=== PATIENT | female | born 1955 | race Caucasian/White ===

== ENCOUNTER 2016-07-01 00:53 | Inpatient (IN) | payer MEDICAID, OTHER ==
[~2016-07-01] VITALS: Ht 154.9 cm; Wt 59.8 kg
[2016-07-01] VITALS (15 sets, daily range): BP systolic 121–171; BP diastolic 58–100; PULSE 72–151; RESP 16–19; TEMP 98.9; O2SAT 92–98
[2016-07-01] MEDS ORDERED: DILTIAZEM HCL 25 MG/5 ML VIAL ONE (01:50)
[2016-07-01] MEDS ORDERED: SODIUM CHLORIDE 0.9% FLUSH 5 ML FLUSH IVF PRN (02:00)
[2016-07-01] MEDS ORDERED: DILTIAZEM HCL 25 MG/5 ML VIAL IV ONE (02:00)
[2016-07-01] MEDS ORDERED: DILTIAZEM HCL 25 MG/5 ML VIAL IV PUSH ONE (02:00)
--- NOTE | 2016-07-01 02:05 | PD ---
HPI Chief Complaint: Psychiatric Symptoms Time Seen by Provider: 01:55 Travel History International Travel<30 days: No Contact w/Intl Traveler<30days: No Traveled to known affect area: No History of Present Illness HPI The patient is 60 year old female who presents to the [facility] emergency department with a history of reportedly being under increased stress recently with increased depression since having to move in with her ex- in a house to avoid foreclosure. The patient reports that she began to drink alcohol again. She reports that she's drinking a half a pint of vodka per day. Because she was concerned about interactions between alcohol and her medications, she has not been taking her medication on a regular basis. She last took her warfarin 2 weeks ago. She last took her other medications yesterday. The patient reports that she has a history of coronary artery disease, atrial fibrillation, hypertension, bipolar disorder. The patient was brought in as a Ruiz act. The patient was noted to be in A. fib with RVR with heart rate in the 140s to 150s on arrival. The patient denies having any acute complaints. The patient was brought in as a Ruiz act. After reviewing the patient's Ruiz act, the patient had reported suicidal ideations to a deputy. The patient was initially taken to the [facility] under the Ruiz act, however they referred her to [facility] as her medical history was beyond the scope of their care. The patient denies any recent fevers, cough, congestion, neck pain, chest pain, shortness of breath, abdominal pain, vomiting, diarrhea, urinary symptoms, or neurologic symptoms. [facility] Past Medical History Narrative Medical The patient's past medical history is significant for insulin-dependent diabetes mellitus, history of atrial fibrillation with RVR, history of a heart valve replacement, history of hypertension, history of bipolar disorder, history of congestive heart failure, history of alcohol abuse. Past Surgical History Narrative Surgical The patient's past surgical history is significant for bilateral tubal ligation , coronary artery bypass grafting and valve replacement 2. Social History Alcohol Use: Yes (one half pint of vodka per day.) Tobacco Use: No Substance Use: No Allergies-Medications (Allergen,Severity, Reaction): Coded Allergies: Spironolactone (Verified Allergy, Mild, 05/03/03) Review of Systems Except as stated in HPI: all other systems reviewed are Neg General / Constitutional: No: Fever Eyes: No: Visual changes HENT: No: Headaches Cardiovascular: No: Chest Pain or Discomfort Respiratory: No: Shortness of Breath Gastrointestinal: No: Abdominal Pain Genitourinary: No: Dysuria Musculoskeletal: No: Pain Skin: No Rash Neurologic: No: Weakness Psychiatric: Positive: Anxiety, Depression, Suicidal Ideations, Mood Disorder, Substance Abuse, No: Homicidal Ideation Endocrine: No: Polydipsia Hematologic/Lymphatic: No: Easy Bruising Physical Exam Narrative General: The patient is a well-developed well-nourished female, with pressured speech, and no acute distress. She is pleasant and cooperative. Head and Neck exam: Head is normocephalic atraumatic. Eyes: Pupils are equal round and reactive to light. Nose: Midline septum with pink mucous membranes Mouth: Dentition unremarkable. Moist mucus membranes. Posterior oropharynx is not erythematous. No tonsillar hypertrophy. Uvula midline. Airway patent. Neck: No palpable lymphadenopathy. No nuchal rigidity. No thyromegaly. Cardiovascular: Irregularly irregular with tachycardia and a rate in the 140s without murmurs, gallops, or rubs. Lungs: Clear to auscultation bilaterally. No wheezes, rhonchi, or rales. Abdomen: Soft, without tenderness to palpation in all 4 quadrants of the abdomen. No guarding, rebound, or rigidity. Normal bowel sounds are audible. Extremities: No clubbing, cyanosis, or edema. 2+ pulses in all 4 extremities. No calf tenderness on palpation. Back: No spinous process tenderness to palpation. No costovertebral angle tenderness to palpation. Neurologic Exam: Cranial nerves 2-12 were intact on exam. Strength is 5/5 in all 4 extremities. No sensory deficits noted. Skin Exam: She has bruising on her extremities in various stages of healing. The patient has circular patches of erythema with dry skin overlying them consistent with psoriasis. Intact skin that is warm and dry. Data Data Last Documented VS Vital Signs Date Time Temp Pulse Resp B/P Pulse Ox O2 Delivery O2 Flow Rate FiO2 07/01/16 04:07 95 21 07/01/16 02:30 128 16 167/77 Room Air 07/01/16 01:50 98.9 Orders Complete Blood Count With Diff (07/01/16 01:38) Comprehensive Metabolic Panel (07/01/16 01:38) Drug Screen, Random Urine (07/01/16 01:38) Alcohol (Ethanol) (07/01/16 01:38) Salicylates (Aspirin) (07/01/16 01:38) Tylenol (Acetaminophen) (07/01/16 01:38) Psych Screen (07/01/16 01:38) Electrocardiogram (07/01/16 01:38) Troponin I (07/01/16 01:38) B-Type Natriuretic Peptide (07/01/16 01:38) Prothrombin Time / Inr (Pt) (07/01/16 01:38) Act Partial Throm Time (Ptt) (07/01/16 01:38) Urinalysis - C+S If Indicated (07/01/16 01:38) Magnesium (Mg) (07/01/16 01:38) Thyroid Stimulating Hormone (07/01/16 01:38) Chest, Single Ap (07/01/16 01:38) Iv Access Insert/Monitor (07/01/16 01:38) Ecg Monitoring (07/01/16 01:38) Oximetry (07/01/16 01:38) Diltiazem Inj (Cardizem Inj) (07/01/16 02:00) Diltiazem Inj (Cardizem Inj) (07/01/16 02:00) Diltiazem Inj (Cardizem Inj) (07/01/16 02:00) Sodium Chloride 0.9% Flush (Ns Flush) (07/01/16 02:00) Diltiazem Inj (Cardizem Inj) (07/01/16 01:50) Sodium Chlorid 0.9% 500 Ml Inj (Ns 500 M (07/01/16 04:00) Lorazepam Inj (Ativan Inj) (07/01/16 04:00) Admit To Inpatient (07/01/16 ) Vital Signs (Adult) Q4H (07/01/16 03:55) Activity Oob With Assistance (07/01/16 03:55) ^ Maintenance Custodian / Telemetry .CONTINUOUS (07/01/16 03:55) Diet Heart Healthy (07/01/16 Breakfast) Sodium Chloride 0.9% Flush (Ns Flush) (07/01/16 04:00) Sodium Chloride 0.9% Flush (Ns Flush) (07/01/16 09:00) Creatine Kinase (Cpk) (07/01/16 08:00) Creatine Kinase (Cpk) (07/01/16 14:00) Troponin I (07/01/16 08:00) Troponin I (07/01/16 14:00) Electrocardiogram (07/01/16 08:00) Electrocardiogram (07/01/16 14:00) Case Management Consult (07/01/16 03:55) Naloxone Inj (Narcan Inj) (07/01/16 04:00) Alcohol Withdrawal Asmt-Ciwa Q4HX18 (07/01/16 03:55) Flumazenil Inj (Romazicon Inj) (07/01/16 04:00) Lorazepam (Ativan) (07/01/16 04:00) Lorazepam Inj (Ativan Inj) (07/01/16 04:00) Lorazepam (Ativan) (07/01/16 04:00) Lorazepam Inj (Ativan Inj) (07/01/16 04:00) Lorazepam Inj (Ativan Inj) (07/01/16 04:00) Lorazepam Inj (Ativan Inj) (07/01/16 04:00) Inpatient Certification (07/01/16 ) Albuterol-Ipratropium Neb (Duoneb Neb) (07/01/16 04:00) Albuterol-Ipratropium Neb (Duoneb Neb) (07/01/16 04:00) Admit Order (Ed Use Only) (07/01/16 04:10) Labs Laboratory Tests Test 07/01/16 02:00 White Blood Count 11.7 TH/MM3 Red Blood Count 4.36 MIL/MM3 Hemoglobin 13.9 GM/DL Hematocrit 39.9 % Mean Corpuscular Volume 91.7 FL Mean Corpuscular Hemoglobin 31.9 PG Mean Corpuscular Hemoglobin 34.8 % Concent Red Cell Distribution Width 13.1 % Platelet Count 167 TH/MM3 Mean Platelet Volume 8.3 FL Neutrophils (%) (Auto) 74.7 % Lymphocytes (%) (Auto) 18.1 % Monocytes (%) (Auto) 6.4 % Eosinophils (%) (Auto) 0.2 % Basophils (%) (Auto) 0.6 % Neutrophils # (Auto) 8.8 TH/MM3 Lymphocytes # (Auto) 2.1 TH/MM3 Monocytes # (Auto) 0.8 TH/MM3 Eosinophils # (Auto) 0.0 TH/MM3 Basophils # (Auto) 0.1 TH/MM3 CBC Comment DIFF FINAL Differential Comment Prothrombin Time 12.5 SEC Prothromb Time International 1.1 RATIO Ratio Activated Partial 23.8 SEC Thromboplast Time Sodium Level 134 MEQ/L Potassium Level 4.4 MEQ/L Chloride Level 100 MEQ/L Carbon Dioxide Level 20.4 MEQ/L Anion Gap 14 MEQ/L Blood Urea Nitrogen 6 MG/DL Creatinine 0.69 MG/DL Estimat Glomerular Filtration 86 ML/MIN Rate Random Glucose 153 MG/DL Calcium Level 9.0 MG/DL Magnesium Level 1.1 MG/DL Total Bilirubin 0.7 MG/DL Aspartate Amino Transf 50 U/L (AST/SGOT) Alanine Aminotransferase 32 U/L (ALT/SGPT) Alkaline Phosphatase 166 U/L Troponin I 0.02 NG/ML B-Type Natriuretic Peptide 103 PG/ML Total Protein 8.9 GM/DL Albumin 4.9 GM/DL Thyroid Stimulating Hormone 0.434 uIU/ML 3rd Gen Salicylates Level LESS THAN 1.7 MG/DL Acetaminophen Level LESS THAN 2.0 MCG/ML Ethyl Alcohol Level 180 MG/DL [facility] Medical Decision Making Medical Screen Exam Complete: Yes Emergency Medical Condition: Yes Medical Record Reviewed: Yes Interpretation(s) Last Impressions Chest X-Ray 07/01/16 0138 Signed Impressions: Service Date/Time: Friday, July 01, 2016 02:00 - CONCLUSION: No acute disease. Heart valve replacement. Toni Willett MD Differential Diagnosis Atrial fibrillation with RVR, versus SVT, versus atrial flutter, versus electrolyte abnormality, versus dehydration Narrative Course During the course of the patients emergency department visit, the patients history, examination, and differential diagnosis were reviewed with the patient. The patient had IV access obtained and blood work sent for analysis. The patient was placed on a case monitor with oximetry and blood pressure monitoring. An EKG was done on arrival. The patient's EKG shows A. fib with RVR with a heart rate in the 140s, no other acute ST segment changes. The patient was provided normal saline IV fluids. The patient was given Cardizem 14 mg IV times one per weight base protocol as a bolus, then Cardizem 5 mg IV per hour for rate control. The patient was given Ativan 0.5 mg IV times one for acute anxiety. The patients laboratory studies were reviewed and remarkable for a white count of 11.7, hemoglobin 13.9, platelets 167 with neutrophils 74.7, CMP is remarkable for sodium of 134, CO2 20.4, BUNs 6, glucose 153, magnesium 1.1 which will be supplemented IV, AST 50, alkaline phosphatase 166, troponin I 0.02 , BNP 103, TSH 0.434, acetaminophen less than 2, salicylate less than 1.7, alcohol 180. Radiology studies were reviewed and remarkable for a chest x-ray that is unremarkable. The patients results were discussed with the patient, including the plan of care. I explained that further testing and/ or monitoring is indicated based on the patients history, examination, and/ or laboratory findings. Therefore, I recommended admission for additional evaluation. The patient expressed understanding and was agreeable with this plan. The patient was admitted to the hospital in stable condition and sent to a bed under the care of the [facility] service. The patients results were discussed with the patient, including the plan of care. I explained that further testing and/ or monitoring is indicated based on the patients history, examination, and/ or laboratory findings. Therefore, I recommended admission for additional evaluation. The patient expressed understanding and was agreeable with this plan. The patient was admitted to the hospital in stable condition and sent to a bed under the care of the [facility] service. Physician Communication Physician Communication The patient's case was discussed with Dr. George who did agree to admit the patient for further evaluation and treatment at this time. Diagnosis Primary Impression: Atrial fibrillation with RVR Additional Impressions: Suicidal ideations Bipolar disorder Qualified Code: F31.9 - Bipolar affective disorder, remission status unspecified Alcohol intoxication Qualified Code: F10.129 - Alcohol intoxication, with unspecified complication Hypomagnesemia Admitting Information Admitting Physician Requests: Odalys Rueda MD Jul 01, 2016 02:05
[2016-07-01 02:13] LABS: AUTOMATED NEUTROPHIL # 8.8 TH/MM3 (1.8-7.7); BASOPHIL # 0.1 TH/MM3 (0-0.2); BASOPHIL % 0.6 % (0.0-2.0); EOSINOPHIL % 0.2 % (0.0-4.0); HEMATOCRIT 39.9 % (35.0-46.0); HEMO FLAGS DIFF FINAL; LYMPH % 18.1 % (9.0-44.0); LYMPHOCYTE # 2.1 TH/MM3 (1.0-4.8); MEAN CELL VOLUME 91.7 FL (80.0-100.0); MEAN CORPUSCULAR HEMOGLOBIN 31.9 PG (27.0-34.0); MEAN CORPUSCULAR HGB CONC 34.8 % (32.0-36.0); MONO % 6.4 % (0.0-8.0); NEUT % 74.7 % (16.0-70.0); PLATELET COUNT 167 TH/MM3 (150-450); RED BLOOD COUNT 4.36 MIL/MM3 (4.00-5.30); RED CELL DISTRIBUTION WIDTH 13.1 % (11.6-17.2); WHITE BLOOD COUNT 11.7 TH/MM3 (4.0-11.0)
[2016-07-01 02:23] LABS: APTT (PATIENT) 23.8 SEC (24.3-30.1); INTERNATIONAL NORMALIZED RATIO 1.1 RATIO; PROTHROMBIN TIME - PATIENT 12.5 SEC (9.8-11.6)
[2016-07-01] MEDS: DILTIAZEM INJ 125 MG in SODIUM CHLORIDE 0.9% INJ 100 ML IV SCH ×2 (02:34→12:20)
[2016-07-01 02:35] LABS: ALT (GPT) 32 U/L (10-53); ANION GAP 14 MEQ/L (5-15); AST (GOT) 50 U/L (15-37); BICARBONATE 20.4 MEQ/L (21.0-32.0); BLOOD UREA NITROGEN 6 MG/DL (7-18); CHLORIDE 100 MEQ/L (98-107); GLOMERULAR FILTRATION RATE 86 ML/MIN (>89); MAGNESIUM 1.1 MG/DL (1.5-2.5); POTASSIUM 4.4 MEQ/L (3.5-5.1); SODIUM (NA) 134 MEQ/L (136-145)
[2016-07-01 02:44] LABS: ACETAMINOPHEN LESS THAN 2.0 MCG/ML (10.0-30.0); ALKALINE PHOSPHATASE 166 U/L (45-117); TOTAL BILIRUBIN ADULT 0.7 MG/DL (0.2-1.0)
--- NOTE | 2016-07-01 03:02 | RADRPT ---
EXAM DATE/TIME: 07/01/2016 02:00 [place] COMPARISON: No previous studies available for comparison. INDICATIONS : Short of breath. MEDICAL HISTORY : None. SURGICAL HISTORY : CABG. ENCOUNTER: Initial ACUITY: 1 day PAIN SCORE: 0/10 LOCATION: Bilateral chest FINDINGS: A single view of the chest demonstrates the lungs to be symmetrically aerated without evidence of mas s, infiltrate or effusion. Status post median sternotomy and heart are replacement. The cardiomedias tinal contours are unremarkable. Osseous structures are intact. CONCLUSION: No acute disease. Heart valve replacement. Toni Willett MD on July 01, 2016 at 3:00 Board Certified Radiologist. This report was verified electronically.
[2016-07-01] MEDS ORDERED: FLUMAZENIL 1 MG/10 ML VIAL IV PUSH PRN (04:00)
[2016-07-01] MEDS ORDERED: RESP: ALBUTEROL 2.5 MG/IPRATROPIUM 0.5 MG NEB (PRN) NEB (04:00)
[2016-07-01] MEDS ORDERED: NALOXONE HCL 0.4 MG/ML AMP IV PRN (04:00)
[2016-07-01] MEDS ORDERED: LORazepam 2 MG/ML VIAL IV PUSH PRN ×3 (04:00)
[2016-07-01] MEDS ORDERED: SODIUM CHLORID 0.9% 500 ML INJ 500 ML IV ONE (04:00)
[2016-07-01] MEDS ORDERED: LORazepam 2 MG/ML VIAL IV PUSH ONE (04:00)
[2016-07-01] MEDS ORDERED: SODIUM CHLORIDE 0.9% FLUSH 5 ML FLUSH FLUSH PRN ×2 (04:00→13:00)
[2016-07-01] MEDS: RESP: ALBUTEROL 2.5 MG/IPRATROPIUM 0.5 MG NEB (SCH) NEB ×4 (04:05→19:40)
[2016-07-01] MEDS: LORazepam 2 MG/ML VIAL IV PUSH PRN ×2 (08:22→12:39)
[2016-07-01] MEDS: SODIUM CHLORIDE 0.9% FLUSH 5 ML FLUSH FLUSH SCH ×3 (09:00→21:40)
[2016-07-01 10:08] LABS: CKMB 6.2 NG/ML (0.5-3.6)
[2016-07-01] MEDS ORDERED: DILTIAZEM HCL 25 MG/5 ML VIAL IV PUSH PRN (11:15)
[2016-07-01] MEDS ORDERED: GLUCAGON 1 MG/ML VIAL OTHER PRN (13:00)
[2016-07-01] MEDS ORDERED: DEXTROSE 50% IN WATER 50 ML VIAL(D50) IV PUSH PRN (13:00)
[2016-07-01] MEDS ORDERED: HEPARIN SODIUM - SQ 10,000 UNITS/ML VIAL SQ SCH (13:00)
[2016-07-01] MEDS ORDERED: DIGOXIN 0.5 MG/2 ML VIAL IV PUSH ONE (13:00)
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
[2016-07-01] MEDS ORDERED: CLOB0.0571 TOPICAL (14:17)
[2016-07-01] MEDS ORDERED: TRAZ100T4 PO (14:17)
[2016-07-01] MEDS ORDERED: HYDR50TA94 PO (14:17)
[2016-07-01] MEDS ORDERED: METF1000 PO (14:17)
[2016-07-01] MEDS ORDERED: LAMO100 PO (14:17)
[2016-07-01] MEDS ORDERED: OMEP20TA PO (14:17)
[2016-07-01] MEDS ORDERED: ZOLO25TA PO (14:17)
[2016-07-01] MEDS ORDERED: LISI2.5T3 PO (14:17)
[2016-07-01] MEDS ORDERED: INSU100V2 SQ (14:17)
[2016-07-01] MEDS ORDERED: METO-426 PO (14:20)
[2016-07-01] MEDS ORDERED: FURO1TAB62 PO (14:20)
[2016-07-01 14:25] LABS: CREATINE KINASE 273 U/L (26-192)
[2016-07-01 14:37] LABS: CKMB 4.3 NG/ML (0.5-3.6)
[2016-07-01] MEDS: MAGNESIUM SULFATE 1 GM PREMIX 100 ML IV SCH ×2 (14:50→15:10)
[2016-07-01] MEDS: SODIUM CHLOR 0.9% 1000 ML INJ 1,000 ML IV SCH (14:50)
[2016-07-01] MEDS: ASPIRIN 325 MG TAB PO SCH (14:51)
[2016-07-01] MEDS: FOLIC ACID 1 MG TAB PO SCH (14:51)
[2016-07-01] MEDS: PANTOPRAZOLE SOD 40 MG DELAYED RELEASE TAB PO SCH (14:52)
[2016-07-01] MEDS: THIAMINE HCL 100 MG TAB PO SCH (14:52)
[2016-07-01] MEDS ORDERED: METOPROLOL TARTRATE 25 MG TAB PO ONE (15:15)
[2016-07-01] MEDS ORDERED: METOPROLOL TARTRATE 5 MG/5 ML VIAL IV PUSH PRN (15:15)
[2016-07-01] MEDS: INSULIN ASPART SUPPLEMENTAL SCALE SQ SCH ×2 (16:56→21:00)
--- NOTE | 2016-07-01 17:09 | EKG ---
Date Performed: 07/01/2016 Time Performed: 01:44:34 PTAGE: 60 years EKG: Supraventricular tachycardia RIGHT BUNDLE BRANCH BLOCK LEFT POSTERIOR FASCICULAR BLOCK ABNO RMAL ECG NO PREVIOUS TRACING DOCTOR: Feng Pappas Interpretating Date/Time 07/01/2016 17:08:38
--- NOTE | 2016-07-01 17:12 | EKG ---
Date Performed: 07/01/2016 Time Performed: 09:04:20 PTAGE: 60 years EKG: Supraventricular tachycardia Right bundle branch block. Left posterior fasicular block. Due to wandering baseline artifact accuate interpretation is Limited. ABNORMAL ECG PREVIOUS TRACING : 07/01/2016 01.44 DOCTOR: Feng Pappas Interpretating Date/Time 07/01/2016 17:11:50
[2016-07-01 17:13] LABS: ALKALINE PHOSPHATASE 156 U/L (45-117); ALT (GPT) 28 U/L (10-53); ANION GAP 15 MEQ/L (5-15); AST (GOT) 36 U/L (15-37); BLOOD UREA NITROGEN 10 MG/DL (7-18); CHLORIDE 98 MEQ/L (98-107); FREE T4 1.08 NG/DL (0.76-1.46); GLOMERULAR FILTRATION RATE 64 ML/MIN (>89); POTASSIUM 4.3 MEQ/L (3.5-5.1); SODIUM (NA) 133 MEQ/L (136-145); TOTAL BILIRUBIN ADULT 1.3 MG/DL (0.2-1.0)
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
[2016-07-01] MEDS ORDERED: PILL SPLITTER OTHER PRN (19:45)
[2016-07-01] MEDS: SERTRALINE HCL 50 MG TAB PO SCH (21:40)
[2016-07-01] MEDS: lamoTRIgine 100 MG TAB PO SCH (21:40)
[2016-07-01] MEDS: traZODone HCL 100 MG TAB PO SCH (21:40)
[2016-07-01] MEDS: BETAMETHASONE DIPROPIONATE 0.05% CREAM 15 GM TOPICAL SCH (21:40)
[2016-07-01] MEDS: METOPROLOL TARTRATE 25 MG TAB PO SCH (21:40)
[2016-07-02] VITALS (11 sets, daily range): BP systolic 108–134; BP diastolic 47–78; PULSE 60–83; RESP 14–20; TEMP 98.2–98.4; O2SAT 94–99
[2016-07-02] MEDS: SODIUM CHLOR 0.9% 1000 ML INJ 1,000 ML IV SCH ×3 (00:14→18:50)
[2016-07-02] MEDS: RESP: ALBUTEROL 2.5 MG/IPRATROPIUM 0.5 MG NEB (SCH) NEB ×4 (03:47→21:28)
[2016-07-02 05:20] LABS: HEMATOCRIT 33.3 % (35.0-46.0); MEAN CELL VOLUME 91.7 FL (80.0-100.0); MEAN CORPUSCULAR HEMOGLOBIN 30.6 PG (27.0-34.0); MEAN CORPUSCULAR HGB CONC 33.3 % (32.0-36.0); PLATELET COUNT 89 TH/MM3 (150-450); RED BLOOD COUNT 3.63 MIL/MM3 (4.00-5.30); RED CELL DISTRIBUTION WIDTH 12.9 % (11.6-17.2); WHITE BLOOD COUNT 4.9 TH/MM3 (4.0-11.0)
[2016-07-02] MEDS: METOPROLOL TARTRATE 25 MG TAB PO SCH ×3 (06:27→20:58)
[2016-07-02] MEDS: INSULIN ASPART SUPPLEMENTAL SCALE SQ SCH ×4 (06:28→20:59)
[2016-07-02 07:06] LABS: REVIEW FLAG AUTO DIFF
[2016-07-02] MEDS: SODIUM CHLORIDE 0.9% FLUSH 5 ML FLUSH FLUSH SCH ×4 (09:00→21:00)
[2016-07-02] MEDS: SERTRALINE HCL 50 MG TAB PO SCH ×2 (10:20→20:58)
[2016-07-02] MEDS: lamoTRIgine 100 MG TAB PO SCH (10:20)
[2016-07-02] MEDS: FOLIC ACID 1 MG TAB PO SCH (10:21)
[2016-07-02] MEDS: THIAMINE HCL 100 MG TAB PO SCH (10:21)
[2016-07-02] MEDS: ASPIRIN 325 MG TAB PO SCH (10:21)
[2016-07-02] MEDS: PANTOPRAZOLE SOD 40 MG DELAYED RELEASE TAB PO SCH (10:22)
[2016-07-02] MEDS: BETAMETHASONE DIPROPIONATE 0.05% CREAM 15 GM TOPICAL SCH ×2 (10:22→21:08)
[2016-07-02] MEDS: LORazepam 1 MG TAB PO PRN ×2 (12:11→20:44)
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
[2016-07-02] MEDS ORDERED: ASPIRIN EC 81 MG TABEC PO ONE (15:45)
[2016-07-02 17:06] LABS: HEMOGLOBIN A1a 0.9 %; HEMOGLOBIN Ao 83.2 %; HEMOGLOBIN LA1C 3.1 %; HEMOGLOBIN P3 4.1 %
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
[2016-07-02] MEDS: DILTIAZEM INJ 125 MG in SODIUM CHLORIDE 0.9% INJ 100 ML IV SCH (20:47)
[2016-07-02] MEDS: INSULIN DETEMIR 100 UNITS/ML VIAL SQ SCH (20:58)
[2016-07-02] MEDS: traZODone HCL 100 MG TAB PO SCH (21:06)
[2016-07-02] MEDS: lamoTRIgine 25 MG TAB PO SCH (21:06)
--- NOTE | 2016-07-02 22:45 | EKG ---
Date Performed: 07/01/2016 Time Performed: 14:17:15 PTAGE: 60 years EKG: ATRIAL FLUTTER/TACHYCARDIA WITH RAPID VENTRICULAR RESPONSE INDETERMINATE AXIS RIGHT BUNDLE BRANCH BLOCK ANTEROSEPTAL MYOCARDIAL INFARCTION ST DEPRESSION, CONSIDER SUBENDOCARDIAL INJURY ABNORMA L ECG PREVIOUS TRACING : 07/01/2016 09.04 Compared to prior tracing no significant change DOCTOR: Terrance Moore Interpretating Date/Time 07/02/2016 22:41:32
[2016-07-03] VITALS (29 sets, daily range): BP systolic 121–175; BP diastolic 71–110; PULSE 52–115; RESP 16–20; TEMP 97.4–98.7; O2SAT 92–99
[2016-07-03] MEDS: LORazepam 1 MG TAB PO PRN (03:47)
[2016-07-03] MEDS: RESP: ALBUTEROL 2.5 MG/IPRATROPIUM 0.5 MG NEB (SCH) NEB ×4 (04:17→21:53)
[2016-07-03 05:19] LABS: AUTOMATED NEUTROPHIL # 1.6 TH/MM3 (1.8-7.7); BASOPHIL % 0.7 % (0.0-2.0); EOSINOPHIL # 0.2 TH/MM3 (0-0.4); EOSINOPHIL % 4.5 % (0.0-4.0); HEMATOCRIT 30.8 % (35.0-46.0); LYMPH % 38.7 % (9.0-44.0); LYMPHOCYTE # 1.3 TH/MM3 (1.0-4.8); MEAN CELL VOLUME 93.8 FL (80.0-100.0); MEAN CORPUSCULAR HEMOGLOBIN 31.6 PG (27.0-34.0); MEAN CORPUSCULAR HGB CONC 33.7 % (32.0-36.0); MONO % 9.8 % (0.0-8.0); NEUT % 46.3 % (16.0-70.0); PLATELET COUNT 74 TH/MM3 (150-450); RED BLOOD COUNT 3.28 MIL/MM3 (4.00-5.30); WHITE BLOOD COUNT 3.4 TH/MM3 (4.0-11.0)
[2016-07-03 05:23] LABS: HEMO FLAGS AUTO DIFF
[2016-07-03 05:44] LABS: ALKALINE PHOSPHATASE 106 U/L (45-117); ALT (GPT) 22 U/L (10-53); ANION GAP 7 MEQ/L (5-15); AST (GOT) 25 U/L (15-37); BICARBONATE 22.3 MEQ/L (21.0-32.0); BLOOD UREA NITROGEN 7 MG/DL (7-18); CHLORIDE 115 MEQ/L (98-107); GLOMERULAR FILTRATION RATE 98 ML/MIN (>89); MAGNESIUM 1.4 MG/DL (1.5-2.5); POTASSIUM 3.5 MEQ/L (3.5-5.1); SODIUM (NA) 144 MEQ/L (136-145); TOTAL BILIRUBIN ADULT 0.6 MG/DL (0.2-1.0)
[2016-07-03] MEDS: METOPROLOL TARTRATE 25 MG TAB PO SCH ×3 (06:23→21:43)
[2016-07-03] MEDS: INSULIN ASPART SUPPLEMENTAL SCALE SQ SCH ×4 (06:25→21:00)
[2016-07-03] MEDS: SODIUM CHLOR 0.9% 1000 ML INJ 1,000 ML IV SCH (06:25)
[2016-07-03 07:57] LABS: PLATELET ESTIMATE SMEAR LOW (NORMAL); PLATELET MORPHOLOGY NORMAL (NORMAL); SCAN/DIFF AUTO DIFF CONFIRMED
--- NOTE | 2016-07-03 08:27 | EC ---
Study Study Date:07/02/2016 STUDY CONCLUSIONS SUMMARY - Left ventricle: The cavity size was normal. Systolic function was normal. The estimated ejection fraction was in the range of 55% to 60%. - Aortic valve: A bioprosthesis was present and functioning normally. There was no pannus formation. Trace regurgitation. - Mitral valve: A bioprosthesis was present and functioning normally. Valve area by pressure half-time: 2.24cm^2. - Left atrium: The atrium was moderately dilated. - Right ventricle: The cavity size was mildly dilated. - Right atrium: The atrium was moderately dilated. - Tricuspid valve: There appears to be a ring repair of the tricuspid valve, but no history noted per the patient. Mild-moderate regurgitation. - Pulmonary arteries: PA peak pressure: 57mm Hg (S). If LV function is below 40, please consider prescribing an ACEI or ARB or document rationale for non-use. PROCEDURE DATA STUDY STATUS: Elective. Procedure: Transthoracic echocardiography. Image quality was good. Scanning was performed from the parasternal, apical, and subcostal acoustic windows. Study completion: The patient tolerated the procedure well. Transthoracic echocardiography. M-mode, complete 2D, complete spectral Doppler, and color Doppler. Patient status: Inpatient. CARDIAC ANATOMY LEFT VENTRICLE: The cavity size was normal. There was no hypertrophy. Systolic function was normal. The estimated ejection fraction was in the range of 55% to 60%. AORTIC VALVE: A bioprosthesis was present and functioning normally. There was no pannus formation. Doppler: There was no stenosis. Trace regurgitation. MITRAL VALVE: A bioprosthesis was present and functioning normally. Doppler: There was no evidence for stenosis. Trace regurgitation. Valve area by pressure half-time: 2.24cm^2. Mean gradient: 5mm Hg (D). Peak gradient: 22mm Hg (D). LEFT ATRIUM: The atrium was moderately dilated. RIGHT VENTRICLE: The cavity size was mildly dilated. Systolic function was normal. PULMONIC VALVE: Not well visualized. Doppler: There was no evidence for stenosis. No significant regurgitation. TRICUSPID VALVE: There appears to be a ring repair of the tricuspid valve, but no history noted per the patient. Doppler: There was no evidence for stenosis. Mild-moderate regurgitation. RIGHT ATRIUM: The atrium was moderately dilated. PERICARDIUM: There was no pericardial effusion. BASIC MEASUREMENTS ADULT Normal Left ventricle LV internal dimension, ED, chordal level, *42.9 mm 43-52 PLAX LV posterior wall thickness, ED 7.63 mm IVS/LVPW ratio, ED 1.17 <1.3 Ventricular septum Septal thickness, ED 8.92 mm Aortic valve Leaflet separation 21 mm 15-26 Left atrium Anterior-posterior dimension 45 mm Right ventricle RV internal dimension, ED, PLAX 27.9 mm 19-38 BASIC MEASUREMENTS ADULT Normal Aortic valve Leaflet separation 21 mm 15-26 Aorta Root diameter, ED 34 mm 20-37 DOPPLER MEASUREMENTS ADULT Normal Main pulmonary artery Pressure, S *57 mm Hg =30 Aortic valve VTI, S 81.7 cm Mitral valve Peak E-wave velocity 204 cm/s Peak A-wave velocity 64.3 cm/s Mean velocity, D 99.9 cm/s Pressure half-time 98 ms Mean gradient, D 5 mm Hg Peak gradient, D 22 mm Hg Peak E/A ratio 3.2 Valve area, pressure half-time 2.24 cm^2 Tricuspid valve Regurgitant peak velocity 341 cm/s Peak RV-RA gradient, S 47 mm Hg Maximal regurgitant velocity 341 cm/s Systemic veins Estimated CVP 10 mm Hg Right ventricle RV pressure, S *57 mm Hg <30 LEGEND: Mean values are shown as u=mean value. Asterisk (*) messer values outside specified normal range. Prepared and signed by Bowen Aguilera [id number]
[2016-07-03] MEDS: PANTOPRAZOLE SOD 40 MG DELAYED RELEASE TAB PO SCH (09:06)
[2016-07-03] MEDS: ASPIRIN EC 81 MG TABEC PO SCH (09:06)
[2016-07-03] MEDS: THIAMINE HCL 100 MG TAB PO SCH (09:06)
[2016-07-03] MEDS: FOLIC ACID 1 MG TAB PO SCH (09:06)
[2016-07-03] MEDS: SERTRALINE HCL 50 MG TAB PO SCH ×2 (09:06→21:42)
[2016-07-03] MEDS: SODIUM CHLORIDE 0.9% FLUSH 5 ML FLUSH FLUSH SCH ×4 (09:07→21:00)
[2016-07-03] MEDS: lamoTRIgine 25 MG TAB PO SCH ×2 (09:07→21:42)
[2016-07-03] MEDS: BETAMETHASONE DIPROPIONATE 0.05% CREAM 15 GM TOPICAL SCH ×2 (09:08→21:43)
[2016-07-03] MEDS: LORazepam 2 MG TAB PO PRN (10:45)
[2016-07-03] MEDS: diphenhydrAMINE HCL 25 MG CAP PO PRN (12:41)
[2016-07-03] MEDS ORDERED: POTASSIUM CHLORIDE 20 MEQ CONTROLLED RELEASE TAB PO ONE (13:45)
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
[2016-07-03] MEDS: MAGNESIUM SULFATE 1 GM PREMIX 100 ML IV SCH ×2 (14:07→17:17)
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
[2016-07-03] MEDS: POTASSIUM PHOSPHATE/SODIUM PHOSPHATE 250 MG TAB PO SCH ×2 (17:16→21:41)
[2016-07-03 20:13] LABS: RETIC % 1.6 % (0.4-3.0)
[2016-07-03 20:19] LABS: REVIEW FLAG FINAL
[2016-07-03 20:24] LABS: APTT (PATIENT) 26.9 SEC (24.3-30.1); INTERNATIONAL NORMALIZED RATIO 1.1 RATIO; PROTHROMBIN TIME - PATIENT 12.1 SEC (9.8-11.6)
[2016-07-03 21:03] LABS: FERRITIN 194 NG/ML (8-252); LDH SERUM 214 U/L (84-246); TRANSFERRIN IRON PROFILE 209 MG/DL (200-360)
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
[2016-07-03] MEDS: traZODone HCL 100 MG TAB PO SCH (21:41)
[2016-07-03] MEDS: INSULIN DETEMIR 100 UNITS/ML VIAL SQ SCH (21:53)
[2016-07-04] VITALS (30 sets, daily range): BP systolic 137–170; BP diastolic 83–102; PULSE 73–117; RESP 14–20; TEMP 97.9–98.9; O2SAT 94–100
[2016-07-04] MEDS: LORazepam 1 MG TAB PO PRN ×2 (00:29→23:25)
[2016-07-04] MEDS: diphenhydrAMINE HCL 25 MG CAP PO PRN ×3 (00:29→20:09)
[2016-07-04] MEDS: SODIUM CHLOR 0.9% 1000 ML INJ 1,000 ML IV SCH (00:29)
[2016-07-04] MEDS: RESP: ALBUTEROL 2.5 MG/IPRATROPIUM 0.5 MG NEB (SCH) NEB ×4 (04:42→20:53)
[2016-07-04] MEDS: POTASSIUM PHOSPHATE/SODIUM PHOSPHATE 250 MG TAB PO SCH ×3 (05:52→22:32)
[2016-07-04] MEDS: METOPROLOL TARTRATE 25 MG TAB PO SCH ×3 (05:52→22:31)
[2016-07-04] MEDS: INSULIN ASPART SUPPLEMENTAL SCALE SQ SCH ×4 (05:54→22:33)
[2016-07-04 07:12] LABS: AUTOMATED NEUTROPHIL # 1.9 TH/MM3 (1.8-7.7); BASOPHIL % 0.6 % (0.0-2.0); EOSINOPHIL # 0.1 TH/MM3 (0-0.4); EOSINOPHIL % 3.8 % (0.0-4.0); LYMPH % 27.7 % (9.0-44.0); LYMPHOCYTE # 0.9 TH/MM3 (1.0-4.8); MEAN CELL VOLUME 93.1 FL (80.0-100.0); MEAN CORPUSCULAR HEMOGLOBIN 31.4 PG (27.0-34.0); MEAN CORPUSCULAR HGB CONC 33.7 % (32.0-36.0); MONO % 7.9 % (0.0-8.0); PLATELET COUNT 70 TH/MM3 (150-450); RED CELL DISTRIBUTION WIDTH 12.8 % (11.6-17.2); WHITE BLOOD COUNT 3.1 TH/MM3 (4.0-11.0)
[2016-07-04 07:29] LABS: ALKALINE PHOSPHATASE 126 U/L (45-117); ALT (GPT) 46 U/L (10-53); ANION GAP 8 MEQ/L (5-15); AST (GOT) 82 U/L (15-37); BICARBONATE 24.3 MEQ/L (21.0-32.0); BLOOD UREA NITROGEN 8 MG/DL (7-18); CHLORIDE 111 MEQ/L (98-107); GLOMERULAR FILTRATION RATE 72 ML/MIN (>89); MAGNESIUM 1.4 MG/DL (1.5-2.5); POTASSIUM 3.9 MEQ/L (3.5-5.1); SODIUM (NA) 143 MEQ/L (136-145); TOTAL BILIRUBIN ADULT 0.5 MG/DL (0.2-1.0)
[2016-07-04 07:34] LABS: HEMO FLAGS AUTO DIFF
[2016-07-04] MEDS ORDERED: CYANOCOBALAMIN 1000 MCG/ML VIAL IM ONE (08:30)
[2016-07-04] MEDS: THIAMINE HCL 100 MG TAB PO SCH (08:37)
[2016-07-04] MEDS: lamoTRIgine 25 MG TAB PO SCH ×2 (08:37→20:09)
[2016-07-04] MEDS: SERTRALINE HCL 50 MG TAB PO SCH ×2 (08:37→20:09)
[2016-07-04] MEDS: FOLIC ACID 1 MG TAB PO SCH (08:37)
[2016-07-04] MEDS: PANTOPRAZOLE SOD 40 MG DELAYED RELEASE TAB PO SCH (08:37)
[2016-07-04] MEDS: ASPIRIN EC 81 MG TABEC PO SCH ×2 (08:38→08:45)
[2016-07-04] MEDS: SODIUM CHLORIDE 0.9% FLUSH 5 ML FLUSH FLUSH SCH ×3 (08:38→22:33)
[2016-07-04] MEDS: BETAMETHASONE DIPROPIONATE 0.05% CREAM 15 GM TOPICAL SCH ×2 (08:39→21:00)
[2016-07-04 09:56] LABS: PLATELET ESTIMATE SMEAR LOW (NORMAL); PLATELET MORPHOLOGY NORMAL (NORMAL); SCAN/DIFF AUTO DIFF CONFIRMED
[2016-07-04] MEDS: MAGNESIUM SULFATE 1 GM PREMIX 100 ML IV SCH ×2 (10:16→12:35)
--- NOTE | 2016-07-04 10:44 | PD.ONC.PN ---
Subjective Subjective Remarks Afebrile overnight. Patient tells me she feels she has a lot of phlegm to cough up but can't cough it up. She denies bleeding. She tells me her plans to move out of her home and stop drinking when she leaves the hospital. Objective Data Date Time Temp Pulse Resp B/P Pulse Ox O2 Delivery O2 Flow Rate FiO2 07/04/16 10:00 89 07/04/16 09:34 99 21 07/04/16 09:00 78 07/04/16 08:01 98.5 79 18 165/98 98 07/04/16 08:01 76 07/04/16 07:01 78 07/04/16 06:00 78 07/04/16 05:00 87 07/04/16 04:00 84 07/04/16 03:00 87 07/04/16 03:00 98.8 90 16 153/89 95 07/04/16 02:00 91 07/04/16 01:00 73 07/04/16 00:00 85 07/03/16 23:00 78 07/03/16 23:00 98.4 92 19 162/110 98 07/03/16 22:00 92 07/03/16 21:58 92 07/03/16 21:00 91 07/03/16 20:00 90 07/03/16 19:00 89 07/03/16 19:00 98.6 115 20 175/96 98 07/03/16 18:00 79 07/03/16 17:00 86 07/03/16 16:00 76 07/03/16 15:01 98.7 76 16 125/76 97 07/03/16 15:00 76 07/03/16 14:00 68 07/03/16 13:00 68 07/03/16 12:01 98.5 88 16 137/83 97 07/03/16 12:00 68 07/03/16 11:00 71 07/04/16 07/04/16 07/04/16 07:00 15:00 23:00 Intake Total 1493 ml Output Total 300 ml Balance 1193 ml Result Diagram: 07/04/1612 07/04/1612 Laboratory Results Laboratory Tests Test 07/03/16 07/04/16 20:00 06:12 Blood Smear Pathologist Review Reticulocyte Count 1.6 % Absolute Reticulocyte Count 51.3 MIL/L Prothrombin Time 12.1 SEC Prothromb Time International 1.1 RATIO Ratio Activated Partial 26.9 SEC Thromboplast Time Fibrinogen 192 mg/dL Iron Level 29 MCG/DL Total Iron Binding Capacity 293 MCG/DL Percent Iron Saturation 9.9 % Ferritin 194 NG/ML Lactate Dehydrogenase 214 U/L Vitamin B12 Level 286 PG/ML Folate 17.8 NG/ML White Blood Count 3.1 TH/MM3 Red Blood Count 3.00 MIL/MM3 Hemoglobin 9.4 GM/DL Hematocrit 28.0 % Mean Corpuscular Volume 93.1 FL Mean Corpuscular Hemoglobin 31.4 PG Mean Corpuscular Hemoglobin 33.7 % Concent Red Cell Distribution Width 12.8 % Platelet Count 70 TH/MM3 Mean Platelet Volume 8.5 FL Neutrophils (%) (Auto) 60.0 % Lymphocytes (%) (Auto) 27.7 % Monocytes (%) (Auto) 7.9 % Eosinophils (%) (Auto) 3.8 % Basophils (%) (Auto) 0.6 % Neutrophils # (Auto) 1.9 TH/MM3 Lymphocytes # (Auto) 0.9 TH/MM3 Monocytes # (Auto) 0.2 TH/MM3 Eosinophils # (Auto) 0.1 TH/MM3 Basophils # (Auto) 0.0 TH/MM3 CBC Comment AUTO DIFF Differential Comment AUTO DIFF CONFIRMED Platelet Estimate LOW Platelet Morphology Comment NORMAL Sodium Level 143 MEQ/L Potassium Level 3.9 MEQ/L Chloride Level 111 MEQ/L Carbon Dioxide Level 24.3 MEQ/L Anion Gap 8 MEQ/L Blood Urea Nitrogen 8 MG/DL Creatinine 0.81 MG/DL Estimat Glomerular Filtration 72 ML/MIN Rate Random Glucose 126 MG/DL Calcium Level 7.8 MG/DL Phosphorus Level 3.5 MG/DL Magnesium Level 1.4 MG/DL Total Bilirubin 0.5 MG/DL Aspartate Amino Transf 82 U/L (AST/SGOT) Alanine Aminotransferase 46 U/L (ALT/SGPT) Alkaline Phosphatase 126 U/L Total Protein 6.2 GM/DL Albumin 3.1 GM/DL Administered Medications Medications (Trade) Dose Ordered Sig/Chelsi Route PRN Reason Start Time Stop Time Status Last Admin Dose Admin IV Flush (NS Flush) 2 ml BID FLUSH 07/01/16 09:00 07/04/16 08:38 Lorazepam (Ativan) 1 mg Q4H PRN PO CIWA 8 - 10 07/01/16 04:00 07/04/16 00:29 Lorazepam (Ativan) 2 mg Q2H PRN PO [facility] 11-14 07/01/16 04:00 07/03/16 10:45 Lorazepam (Ativan Inj) 2 mg Q2H PRN IV PUSH [facility] 11-14 07/01/16 04:00 07/01/16 12:39 Thiamine HCl (Vitamin B1) 100 mg DAILY PO 07/01/16 13:00 07/04/16 08:37 Folic Acid (Folate) 1 mg DAILY PO 07/01/16 13:00 07/04/16 08:37 Pantoprazole Sodium (Protonix) 40 mg DAILY PO 07/01/16 13:00 07/04/16 08:37 IV Flush 2 ml 2 ml BID FLUSH 07/01/16 21:00 07/04/16 08:38 Sodium Chloride (NS 1000 ml Inj) 1,000 ml @ 100 mls/hr Q10H IV 07/01/16 13:00 07/04/16 00:29 Metoprolol Tartrate (Lopressor) 25 mg Q8HR PO 07/01/16 22:00 07/04/16 05:52 Sertraline HCl (Zoloft) 25 mg BID PO 07/01/16 21:00 07/04/16 08:37 Trazodone HCl (Desyrel) 200 mg HS PO 07/01/16 21:00 07/03/16 21:41 Betamethasone Dipropionate (Diprosone 0.05% Cream) 1 applic BID TOPICAL 07/01/16 21:00 07/04/16 08:39 Insulin Detemir (Levemir Inj) 10 units HS SQ 07/02/16 21:00 07/03/16 21:53 Aspirin (Ecotrin Ec) 81 mg DAILY PO 07/03/16 09:00 07/03/16 09:06 Lamotrigine (LaMICtal) 75 mg BID PO 07/02/16 21:00 07/04/16 08:37 Diphenhydramine HCl (Benadryl) 25 mg Q4H PRN PO ITCHING AND/OR RASH 07/03/16 12:00 07/04/16 08:36 Potassium Phos/ Sodium Phos 250 mg 250 mg Q8HR PO 07/03/16 15:00 07/04/16 05:52 Magnesium Sulfate/ Dextrose (Magnesium Sulfate 1 Gm Premix) 100 ml @ 100 mls/hr Q1H IV 07/04/16 09:00 07/04/16 10:59 07/04/16 10:16 Objective Remarks GENERAL: Middle aged female, sitting up in bed in nad. SKIN: Warm and dry. HEAD: Normocephalic. EYES: No injection or drainage. NECK: Supple, trachea midline. CARDIOVASCULAR: Regular rate and rhythm RESPIRATORY: Breath sounds equal bilaterally. No accessory muscle use. GASTROINTESTINAL: Abdomen soft, non-tender, nondistended. EXTREMITIES: No cyanosis NEUROLOGICAL: No obvious focal deficit. Awake, alert, and oriented x3. Assessment/Plan Problem List: (1) Pancytopenia Status: Acute Plan: 07/04: will give B12 x 1 today. monitor CBC --likely alcohol induced bone marrow suppression. Other differential included a consumptive process like DIC and vitamin deficiency due to her poor nutrition. --anticipate her blood count to trend up once the alcohol is out of her system. Assessment 60y/o female admitted in afib w/RVR after syncopal episode. Hematology consulted for pancytopenia, likely alcohol induced. h/o Congestive heart failure, Diabetes mellitus, Depression, anxiety, Bipolar disorder Alcohol abuse Alcohol withdrawal seizure Atrial fibrillation and coronary artery disease Coronary bypass graft surgery Bovine valve replacement surgery . Plan 1. B12 today 2. monitor CBC Attending Statement The exam, history, and the medical decision-making described in the above note were completed with the assistance of the mid-level provider. I reviewed and agree with the findings presented. I attest that I had a [id number] encounter with the patient on the same day, and personally performed and documented my assessment and findings in the medical record. No bleeding. Pancytopenia likely due to etoh intoxication. B12 is borderline. Give B12. Monitor CBC. Delma Corey Jul 04, 2016 10:44 Ankush Mojica MD Jul 04, 2016 17:35
[2016-07-04] MEDS ORDERED: MENTHOL LOZENGE BUCCAL PRN (11:15)
[2016-07-04] MEDS ORDERED: FUROSEMIDE 40 MG/4 ML VIAL IV PUSH ONE (12:00)
[2016-07-04] MEDS ORDERED: methylPREDNISolone SOD SUCC 125 MG/2 ML VIAL IV PUSH ONE (12:00)
[2016-07-04] MEDS ORDERED: POTASSIUM CHLORIDE 20 MEQ CONTROLLED RELEASE TAB PO ONE (12:00)
--- NOTE | 2016-07-04 12:19 | RADRPT ---
EXAM DATE/TIME: 07/04/2016 11:31 [place] COMPARISON: CHEST SINGLE AP, July 01, 2016, 2:00. INDICATIONS: Cough, short of breath MEDICAL HISTORY: None. SURGICAL HISTORY: CABG. ENCOUNTER: Subsequent ACUITY: 1 week PAIN SCORE: 0/10 LOCATION: Bilateral chest FINDINGS: Heart is enlarged. Valvular prosthesis is noted. Moderate interstitial edema is present. There is no alveolar consolidation, pleural effusion or pneumothorax. CONCLUSION: Previous bypass and valve replacement. Mild congestive failure. Mikal Rodriguez MD FACR on July 04, 2016 at 12:13 Board Certified Radiologist. This report was verified electronically.
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
[2016-07-04] MEDS: LORazepam 2 MG TAB PO PRN ×2 (16:08→20:09)
[2016-07-04] MEDS: FUROSEMIDE 40 MG TAB PO SCH (18:00)
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
[2016-07-04] MEDS: traZODone HCL 100 MG TAB PO SCH (20:10)
[2016-07-04] MEDS: INSULIN DETEMIR 100 UNITS/ML VIAL SQ SCH (20:10)
[2016-07-05] VITALS (25 sets, daily range): BP systolic 138–142; BP diastolic 74–90; PULSE 59–85; RESP 18–22; TEMP 97.5–98.3; O2SAT 96–99
[2016-07-05] MEDS: RESP: ALBUTEROL 2.5 MG/IPRATROPIUM 0.5 MG NEB (SCH) NEB ×3 (03:01→16:36)
[2016-07-05] MEDS: METOPROLOL TARTRATE 25 MG TAB PO SCH ×3 (06:05→22:00)
[2016-07-05] MEDS: POTASSIUM PHOSPHATE/SODIUM PHOSPHATE 250 MG TAB PO SCH ×3 (06:05→20:34)
[2016-07-05] MEDS: LORazepam 1 MG TAB PO PRN (06:05)
[2016-07-05] MEDS: INSULIN ASPART SUPPLEMENTAL SCALE SQ SCH ×4 (06:06→20:35)
[2016-07-05 06:10] LABS: AUTOMATED NEUTROPHIL # 3.4 TH/MM3 (1.8-7.7); BASOPHIL % 0.4 % (0.0-2.0); EOSINOPHIL % 0.9 % (0.0-4.0); HEMATOCRIT 30.2 % (35.0-46.0); LYMPH % 18.2 % (9.0-44.0); LYMPHOCYTE # 0.9 TH/MM3 (1.0-4.8); MEAN CELL VOLUME 91.4 FL (80.0-100.0); MEAN CORPUSCULAR HEMOGLOBIN 31.3 PG (27.0-34.0); MEAN CORPUSCULAR HGB CONC 34.3 % (32.0-36.0); MONO % 10.3 % (0.0-8.0); NEUT % 70.2 % (16.0-70.0); PLATELET COUNT 97 TH/MM3 (150-450); RED BLOOD COUNT 3.31 MIL/MM3 (4.00-5.30); RED CELL DISTRIBUTION WIDTH 12.6 % (11.6-17.2); WHITE BLOOD COUNT 4.8 TH/MM3 (4.0-11.0)
[2016-07-05 06:18] LABS: HEMO FLAGS DIFF FINAL
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
[2016-07-05] MEDS: ASPIRIN EC 81 MG TABEC PO SCH ×2 (09:00→09:56)
[2016-07-05] MEDS: lamoTRIgine 25 MG TAB PO SCH ×2 (09:55→20:34)
[2016-07-05] MEDS: POTASSIUM CHLORIDE 20 MEQ CONTROLLED RELEASE TAB PO SCH (09:55)
[2016-07-05] MEDS: FOLIC ACID 1 MG TAB PO SCH (09:55)
[2016-07-05] MEDS: LORazepam 2 MG TAB PO PRN ×4 (09:55→20:42)
[2016-07-05] MEDS: SERTRALINE HCL 50 MG TAB PO SCH ×2 (09:56→20:34)
[2016-07-05] MEDS: FUROSEMIDE 40 MG TAB PO SCH ×2 (09:56→17:37)
[2016-07-05] MEDS: PANTOPRAZOLE SOD 40 MG DELAYED RELEASE TAB PO SCH (09:56)
[2016-07-05] MEDS: THIAMINE HCL 100 MG TAB PO SCH (09:57)
[2016-07-05] MEDS: SODIUM CHLORIDE 0.9% FLUSH 5 ML FLUSH FLUSH SCH ×2 (09:58→21:00)
[2016-07-05] MEDS: MAGNESIUM SULFATE 1 GM PREMIX 100 ML IV SCH ×4 (10:00→17:38)
[2016-07-05] MEDS: BETAMETHASONE DIPROPIONATE 0.05% CREAM 15 GM TOPICAL SCH ×2 (10:09→20:34)
[2016-07-05] MEDS: MAGNESIUM OXIDE 400 MG TAB PO SCH ×2 (14:52→17:37)
[2016-07-05] MEDS: traZODone HCL 100 MG TAB PO SCH (20:34)
[2016-07-05] MEDS: INSULIN DETEMIR 100 UNITS/ML VIAL SQ SCH (20:36)
[2016-07-06] VITALS (17 sets, daily range): BP systolic 134–153; BP diastolic 76–88; PULSE 59–110; RESP 18–20; TEMP 97.9–98.1; O2SAT 97–98
[2016-07-06] MEDS: RESP: ALBUTEROL 2.5 MG/IPRATROPIUM 0.5 MG NEB (SCH) NEB ×2 (03:38→10:37)
[2016-07-06 04:18] LABS: AUTOMATED NEUTROPHIL # 3.7 TH/MM3 (1.8-7.7); BASOPHIL % 0.7 % (0.0-2.0); EOSINOPHIL # 0.2 TH/MM3 (0-0.4); EOSINOPHIL % 3.7 % (0.0-4.0); HEMATOCRIT 33.9 % (35.0-46.0); HEMO FLAGS DIFF FINAL; LYMPH % 22.7 % (9.0-44.0); LYMPHOCYTE # 1.3 TH/MM3 (1.0-4.8); MEAN CELL VOLUME 92.6 FL (80.0-100.0); MEAN CORPUSCULAR HEMOGLOBIN 31.4 PG (27.0-34.0); MEAN CORPUSCULAR HGB CONC 33.9 % (32.0-36.0); MONO % 10.5 % (0.0-8.0); NEUT % 62.4 % (16.0-70.0); PLATELET COUNT 109 TH/MM3 (150-450); RED BLOOD COUNT 3.66 MIL/MM3 (4.00-5.30); RED CELL DISTRIBUTION WIDTH 12.7 % (11.6-17.2); WHITE BLOOD COUNT 5.9 TH/MM3 (4.0-11.0)
[2016-07-06] MEDS: POTASSIUM PHOSPHATE/SODIUM PHOSPHATE 250 MG TAB PO SCH ×2 (06:18→12:16)
[2016-07-06] MEDS: INSULIN ASPART SUPPLEMENTAL SCALE SQ SCH ×2 (06:18→12:35)
[2016-07-06] MEDS: METOPROLOL TARTRATE 25 MG TAB PO SCH ×2 (06:18→12:16)
[2016-07-06] MEDS: MAGNESIUM OXIDE 400 MG TAB PO SCH (06:18)
[2016-07-06] MEDS ORDERED: MAGNESIUM SULFATE 1 GM PREMIX 100 ML IV SCH (07:00)
[2016-07-06] MEDS: THIAMINE HCL 100 MG TAB PO SCH (08:29)
[2016-07-06] MEDS: ASPIRIN EC 81 MG TABEC PO SCH (08:29)
[2016-07-06] MEDS: POTASSIUM CHLORIDE 20 MEQ CONTROLLED RELEASE TAB PO SCH (08:29)
[2016-07-06] MEDS: lamoTRIgine 25 MG TAB PO SCH (08:29)
[2016-07-06] MEDS: FOLIC ACID 1 MG TAB PO SCH (08:29)
[2016-07-06] MEDS: LORazepam 2 MG TAB PO PRN (08:30)
[2016-07-06] MEDS: FUROSEMIDE 40 MG TAB PO SCH (08:30)
[2016-07-06] MEDS: SERTRALINE HCL 50 MG TAB PO SCH (08:30)
[2016-07-06] MEDS: PANTOPRAZOLE SOD 40 MG DELAYED RELEASE TAB PO SCH (08:33)
[2016-07-06] MEDS ORDERED: ASPI81TA11 PO (08:54)
[2016-07-06] MEDS ORDERED: VITA100T2 PO (08:54)
[2016-07-06] MEDS ORDERED: METO25TA3 PO (08:54)
[2016-07-06] MEDS ORDERED: FOLI1TAB4 PO (08:54)
[2016-07-06] MEDS ORDERED: LORA-392 PO (08:55)
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
[2016-07-06] MEDS: BETAMETHASONE DIPROPIONATE 0.05% CREAM 15 GM TOPICAL SCH (09:00)
[2016-07-06] MEDS ORDERED: CYANOCOBALAMIN 1,000 MCG TAB PO ONE (10:00)
[2016-07-06 10:18] LABS: ALKALINE PHOSPHATASE 155 U/L (45-117); ALT (GPT) 63 U/L (10-53); ANION GAP 10 MEQ/L (5-15); AST (GOT) 62 U/L (15-37); BICARBONATE 32.9 MEQ/L (21.0-32.0); BLOOD UREA NITROGEN 23 MG/DL (7-18); CHLORIDE 95 MEQ/L (98-107); GLOMERULAR FILTRATION RATE 62 ML/MIN (>89); MAGNESIUM 1.7 MG/DL (1.5-2.5); POTASSIUM 3.9 MEQ/L (3.5-5.1); SODIUM (NA) 138 MEQ/L (136-145); TOTAL BILIRUBIN ADULT 0.7 MG/DL (0.2-1.0)
[2016-07-06] MEDS: SODIUM CHLORIDE 0.9% FLUSH 5 ML FLUSH FLUSH SCH (12:18)
[2016-07-06] MEDS: MAGNESIUM SULFATE 1 GM PREMIX 100 ML IV SCH (12:19)
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
[2016-07-06] MEDS ORDERED: MAGNESIUM OXIDE 400 MG TAB PO SCH (18:00)
== END 2016-07-06 16:44 | disposition home health service (06) | DRG 309 ==
LOC: NEPC 00:53 → NEDA 04:12 → NEDH 07-02 07:38 → HCIN 07-02 19:40
PROVIDERS: ADMIT Hospitalist; ATTEND Hospitalist
DX: I48.91 Unspecified atrial fibrillation (principal); E87.1 Hypo-osmolality and hyponatremia; D61.818 Other pancytopenia; E87.2 Acidosis; D69.59 Other secondary thrombocytopenia; E11.65 Type 2 diabetes mellitus with hyperglycemia; R45.851 Suicidal ideations; F10.239 Alcohol dependence with withdrawal, unspecified; I25.110 Atherosclerotic heart disease of native coronary artery with unstable angina pectoris; F10.24 Alcohol dependence with alcohol-induced mood disorder; E86.0 Dehydration; I50.9 Heart failure, unspecified; F10.229 Alcohol dependence with intoxication, unspecified; Y90.6 Blood alcohol level of 120-199 mg/100 ml; E83.42 Hypomagnesemia; R21 Rash and other nonspecific skin eruption; I10 Essential (primary) hypertension; D72.829 Elevated white blood cell count, unspecified; R05 Cough; T76.11XA Adult physical abuse, suspected, initial encounter; Z95.1 Presence of aortocoronary bypass graft; J02.9 Acute pharyngitis, unspecified; R04.0 Epistaxis; F31.9 Bipolar disorder, unspecified; S01.112A Laceration without foreign body of left eyelid and periocular area, initial encounter; R06.2 Wheezing; Z91.14 Patient's other noncompliance with medication regimen; Z79.84 Long term (current) use of oral hypoglycemic drugs; Z95.3 Presence of xenogenic heart valve
CPT/HCPCS: 71010; 80053; 80162; 80320; 80329; 82550; 82552; 82607; 82728; 82746; 82948; 83036; 83540; 83550; 83615; 83735; 83880; 84100; 84439; 84443; 84484; 85025; 85027; 85044; 85060; 85384; 85610; 85730; 93005; 93306; 94640; 94664; 96365; 96375; G0480; J1160; J1815; J1940; J2060; J2930; J3420; J3475; J7030; J7040